=== PATIENT | male | born 1955 | race African-American/Black ===

== ENCOUNTER 2018-04-15 19:26 | Emergency (ER) | payer OTHER ==
[~2018-04-15] VITALS: Ht 177.8 cm; Wt 76.7 kg
[~2018-04-15 19:26] MED LIST: lisinopril; metoprolol
[2018-04-15] MEDS ORDERED: KETOROLAC 15 MG/ML VIAL. IV ONE (20:30)
[2018-04-15] MEDS ORDERED: IV NORMAL SALINE 1000ML BAG 1,000 ML IV ONE (20:30)
[2018-04-15 20:48] LABS: BASO # 0.1 x10^3/uL (0.0-0.2); BASO % 2 % (0-3); EOS # 0.1 x10^3/uL (0.0-0.7); EOS % 2 % (0-3); HEMATOCRIT 38.7 % (39.0-53.0); HEMOGLOBIN 13.6 g/dL (13.0-17.5); LYMPH % 53 % (24-48); MEAN CORPUSCULAR HEMOGLOBIN 33 pg (25-35); MEAN CORPUSCULAR HGB CONC 35 g/dL (31-37); MEAN CORPUSCULAR VOLUME 95 fL (79-100); MONO # 0.5 x10^3/uL (0.0-1.1); MONO % 13 % (0-9); NEUT # 1.2 x10^3uL (1.8-7.7); NEUT % 31 % (31-73); PLATELET COUNT 85 x10^3/uL (140-400); RED CELL DISTRIBUTION WIDTH 14.5 % (11.5-14.5); WHITE BLOOD COUNT 3.9 x10^3/uL (4.0-11.0)
[2018-04-15 20:49] LABS: BILIRUBIN,URINE NEGATIVE (NEG); CLARITY,URINE CLEAR; COLOR,URINE YELLOW; NITRITE,URINE NEGATIVE (NEG); PH,URINE 5.5; PROTEIN,URINE NEGATIVE (NEG-TRACE)
[2018-04-15 20:53] LABS: BACTERIA,URINE 0 /HPF (0-FEW); RBC,URINE 0 /HPF (0-2); SQUAMOUS EPITHELIAL CELL,UR FEW /LPF
[2018-04-15 21:00] LABS: CALCIUM 7.9 mg/dL (8.5-10.1); CREATININE 0.9 mg/dL (0.7-1.3); GFR 103.5; POTASSIUM 3.3 mmol/L (3.5-5.1)
[2018-04-15 21:06] LABS: ALBUMIN 3.5 g/dL (3.4-5.0); TOTAL BILIRUBIN 0.8 mg/dL (0.2-1.0)
--- NOTE | 2018-04-15 21:16 | RAD ---
PQRS Compliance statement: One or more of the following individualized dose reduction techniques were utilized for this examination: 1. Automated exposure control. 2. Adjustment of the mA and/or kV according to patient size. 3. Use of iterative reconstruction technique. Indication:rt sided abd/flank pain, no priors TECHNIQUE: CT abdomen and pelvis without IV contrast with multiplanar reformats. COMPARISON: None FINDINGS: Limited evaluation of solid abdominal and pelvic organs due to lack of IV contrast. Heart is normal in size. No pericardial or pleural effusion. Mild bibasilar interstitial opacities are seen. Noncontrast appearance of the liver, gallbladder, pancreas, adrenals within normal limits. Multiple calcified granulomas are seen in the spleen. No nephrolithiasis or hydronephrosis. Questionable 3 mm stone in the distal right ureter just proximal to the right UVJ. No free pelvic fluid or ascites. No bowel obstruction. Normal appendix. No right lower quadrant inflammatory changes. The prostate and seminal vesicles show no large mass. Urinary bladder demonstrates no radiopaque stones. No enlarged retroperitoneal or pelvic adenopathy. Moderate diffuse atherosclerotic calcification seen of the abdominal aorta and bilateral iliac arteries. No pneumoperitoneum. Diffuse patchy sclerosis of the bones seen. IMPRESSION: Limited exam due to lack of IV contrast. 1. No nephrolithiasis. Punctate questionable 3 mm calcific density in the region of distal right ureter which may represent a ureteral stone or phlebolith. No significant hydronephrosis. 3. Normal appendix. 4. Diffuse patchy sclerotic appearance of the bones noted secondary to myeloproliferative disease, metastasis or renal osteodystrophy. Clinically correlate with history. Electronically signed by: Rodri Clifford DO (04/15/2018 9:12 PM) [facility]
--- NOTE | 2018-04-15 21:24 | PHYS DOC ---
Past Medical History Past Medical History: Hypertension Past Surgical History: No Surgical History Alcohol Use: Heavy Drug Use: None Adult General Chief Complaint Chief Complaint: FLANK PAIN HPI HPI Patient is a 62 year old male who presents with right flank pain. He says he was lifting a lot of heavy things at work today he's had this intermittent pain for several days if not longer comes and goes. He does drink 8 beers per day he [facility] that he may have [facility]. He is not sure about that. He denies any dysuria fever or vomiting the pain is sharp and intermittent and comes and goes and radiates into the abdominal area. Review of Systems Review of Systems Constitutional: Denies fever or chills [] Eyes: Denies change in visual acuity, redness, or eye pain [] HENT: Denies nasal congestion or sore throat [] Respiratory: Denies cough or shortness of breath [] : Denies dysuria or hematuria [] Neurologic: Denies headache, focal weakness or sensory changes [] Endocrine: Denies polyuria or polydipsia [] All other systems were reviewed and found to be within normal limits, except as documented in this note. Current Medications Current Medications Current Medications Medications (Trade) Dose Ordered Sig/Jade Start Time Stop Time Status Last Admin Dose Admin Ketorolac Tromethamine (Toradol 15mg Vial) 15 mg 1X ONCE 04/15/18 20:30 04/15/18 20:31 DC 04/15/18 21:15 15 MG Sodium Chloride 1,000 ml @ 1,000 mls/hr 1X ONCE 04/15/18 20:30 04/15/18 21:29 DC 04/15/18 20:30 1,000 MLS/HR Allergies Allergies Allergies Coded Allergies Type Severity Reaction Last Updated Verified No Known Drug Allergies 12/06/14 No Physical Exam Physical Exam Constitutional: Well developed, well nourished, no acute distress, non-toxic appearance. [] HENT: Normocephalic, atraumatic, bilateral external ears normal, oropharynx moist, no oral exudates, nose normal. [] Eyes: PERRLA, EOMI, conjunctiva normal, no discharge. [] Neck: Normal range of motion, no tenderness, supple, no stridor. [] Cardiovascular:Heart rate regular rhythm, no murmur [] Lungs & Thorax: Bilateral breath sounds clear to auscultation [] Abdomen: Bowel sounds normal, soft, no tenderness, no masses, no pulsatile masses. [] Skin: Warm, dry, no erythema, no rash. [] Back: There is pinpoint tenderness over the anterior superior iliac spine no midline lumbar tenderness. Extremities: No tenderness, no cyanosis, no clubbing, ROM intact, no edema. [] Neurologic: Alert and oriented X 3, normal motor function, normal sensory function, no focal deficits noted. [] Psychologic: Affect normal, judgement normal, mood normal. [] Current Patient Data Lab Values Laboratory Tests Test 04/15/18 20:20 04/15/18 20:35 Urine Collection Type Unknown Urine Color Yellow Urine Clarity Clear Urine pH 5.5 Urine Specific Waucoma 1.010 Urine Protein Negative mg/dL (NEG-TRACE) Urine Glucose (UA) Negative mg/dL (NEG) Urine Ketones (Stick) Negative mg/dL (NEG) Urine Blood Negative (NEG) Urine Nitrite Negative (NEG) Urine Bilirubin Negative (NEG) Urine Urobilinogen Dipstick 1.0 mg/dL (0.2 mg/dL) Urine Leukocyte Esterase Trace (NEG) Urine RBC 0 /HPF (0-2) Urine WBC 1-4 /HPF (0-4) Urine Squamous Epithelial Cells Few /LPF Urine Bacteria 0 /HPF (0-FEW) White Blood Count 3.9 x10^3/uL (4.0-11.0) L Red Blood Count 4.10 x10^6/uL (4.30-5.70) L Hemoglobin 13.6 g/dL (13.0-17.5) Hematocrit 38.7 % (39.0-53.0) L Mean Corpuscular Volume 95 fL (79-100) Mean Corpuscular Hemoglobin 33 pg (25-35) Mean Corpuscular Hemoglobin Concent 35 g/dL (31-37) Red Cell Distribution Width 14.5 % (11.5-14.5) Platelet Count 85 x10^3/uL (140-400) L Neutrophils (%) (Auto) 31 % (31-73) Lymphocytes (%) (Auto) 53 % (24-48) H Monocytes (%) (Auto) 13 % (0-9) H Eosinophils (%) (Auto) 2 % (0-3) Basophils (%) (Auto) 2 % (0-3) Neutrophils # (Auto) 1.2 x10^3uL (1.8-7.7) L Lymphocytes # (Auto) 2.0 x10^3/uL (1.0-4.8) Monocytes # (Auto) 0.5 x10^3/uL (0.0-1.1) Eosinophils # (Auto) 0.1 x10^3/uL (0.0-0.7) Basophils # (Auto) 0.1 x10^3/uL (0.0-0.2) Sodium Level 141 mmol/L (136-145) Potassium Level 3.3 mmol/L (3.5-5.1) L Chloride Level 103 mmol/L (98-107) Carbon Dioxide Level 26 mmol/L (21-32) Anion Gap 12 (6-14) Blood Urea Nitrogen 4 mg/dL (8-26) L Creatinine 0.9 mg/dL (0.7-1.3) Estimated GFR (Cockcroft-Gault) 103.5 BUN/Creatinine Ratio 4 (6-20) L Glucose Level 126 mg/dL (70-99) H Calcium Level 7.9 mg/dL (8.5-10.1) L Total Bilirubin 0.8 mg/dL (0.2-1.0) Aspartate Amino Transferase (AST) 92 U/L (15-37) H Alanine Aminotransferase (ALT) 61 U/L (16-63) Alkaline Phosphatase 111 U/L (46-116) Total Protein 7.0 g/dL (6.4-8.2) Albumin 3.5 g/dL (3.4-5.0) Albumin/Globulin Ratio 1.0 (1.0-1.7) Lipase 187 U/L (73-393) Laboratory Tests 04/15/18 20:35 Laboratory Tests 04/15/18 20:35 EKG EKG [] Radiology/Procedures Radiology/Procedures [] Impressions: IMPRESSION: Limited exam due to lack of IV contrast. 1. No nephrolithiasis. Punctate questionable 3 mm calcific density in the region of distal right ureter which may represent a ureteral stone or phlebolith. No significant hydronephrosis. 3. Normal appendix. 4. Diffuse patchy sclerotic appearance of the bones noted secondary to myeloproliferative disease, metastasis or renal osteodystrophy. Clinically correlate with history. Electronically signed by: Rodri Clifford DO (04/15/2018 9:12 PM) [facility] Course & Med Decision Making Course & Med Decision Making Pertinent Labs and Imaging studies reviewed. (See chart for details) []This is a 62-year-old male heavy drinker possible history of cirrhosis followed at the [facility] presenting with chief, right basically flank pain. Initially given the radiation and intermittent sort of waxing and waning nature I thought about a kidney stone we did a noncontrast CT noted the result there is no blood in the urine I think that the questionable finding is probably not a kidney stone. I offered the patient pain medication he declined he was given return precautions to come back to the ER for fever or persistent pain. Lab work was otherwise essentially unremarkable. I did note that there is a abnormal bone finding on the CT scan I did copy and placed this resulted to the patient's discharge instructions I told the patient and his partner and said that he needed to follow up [facility] the [facility] for further evaluation of this finding to evaluate for possible abnormality such as myeloma. Dragon Disclaimer Dragon Disclaimer This electronic medical record was generated, in whole or in part, using a voice recognition dictation system. Departure Departure Impression: Primary Impression: Back pain Disposition: HOME, SELF-CARE Condition: STABLE Referrals: UNKNOWN PCP NAME (PCP) JAZMINE GUTIÉRREZ MD Apr 15, 2018 21:24
[2018-04-15 22:00] VITALS: BP 126/65
== END 2018-04-15 22:13 | disposition home or self-care (01) ==
LOC: ER 19:26
DX: M54.89 Other dorsalgia (principal); R10.9 Unspecified abdominal pain; I10 Essential (primary) hypertension; F10.20 Alcohol dependence, uncomplicated; Y90.9 Presence of alcohol in blood, level not specified
CPT/HCPCS: 36415; 74176; 80053; 81001; 83690; 85025; 87086; 96374; 99285; J1885; J7030